=== PATIENT | male | born 1990 | race Caucasian/White ===

== ENCOUNTER 2021-07-14 15:40 | Emergency (ER) | payer MEDICAID ==
[~2021-07-14] VITALS: Ht 175.3 cm; Wt 118.0 kg
[2021-07-14 15:44] VITALS: BP 122/81
== END 2021-07-14 19:35 | disposition left against medical advice (07) ==
LOC: ER 15:40
DX: R10.9 Unspecified abdominal pain (principal)
CPT/HCPCS: 99283